=== PATIENT | male | born 1945 | race Caucasian/White ===

== ENCOUNTER 2023-03-23 10:41 | Day surgery (SDC) | payer MEDICARE, SELFPAY ==
[2023-03-16 12:26] LABS: Hemoglobin 14.6 g/dL (13.0-16.5); Mean Corp Hgb Conc 33.2 g/dL (32-36); Mean Corpuscular Hgb 32.3 pg (27.0-32.0); Mean Corpuscular Volume 97.3 fL (80-94); Mean Platelet Vol. 9.4 fl (6.2-12.0); Platelet Count 279 K/mm3 (150-450); RBC Distribution Width CV 13.2 % (11.6-14.6); RBC Distribution Width SD 47.1 fl (35.1-43.9); Red Blood Count 4.52 M/mm3 (4.6-6.2); White Blood Count 8.1 K/mm3 (4.4-11.0)
[2023-03-16 13:07] LABS: Anion Gap 5 (5-15); BUN 23 mg/dL (7-18); BUN/Creat Ratio 20.7 RATIO (10-20); Calcium,Total 8.9 mg/dL (8.5-10.1); Chloride 107 mmol/L (98-107); Creatinine, Serum 1.11 mg/dL (0.70-1.30); EST Glomerular Filtration Rate 68 mL/min (>60); Est Glom Filt Rate - Afr Amer 82 mL/min (>60); Glucose 107 mg/dL (74-106); Potassium 4.7 mmol/L (3.5-5.1); Sodium Level 138 mmol/L (136-145)
[2023-03-23 11:13] VITALS: BP 163/93; PULSE 90; RESP 16; TEMP 36.2; O2SAT 100; BMI 23.8
[2023-03-23] MEDS: Lactated Ringers 1,000 ML 15 ML IV (11:23)
--- NOTE | 2023-03-23 11:27 | PCM.HP.BLA ---
History and Physical Date of Admission: 03/23/23 Intake Vital Signs 01/20/2314:57 Height 5 ft 7 in Weight: 156 lb 6 oz BMI 24.5 BP 142/85 H Blood Pressure Location Rt brachial Position Sitting Respiration 17 Pulse 84 Pulse Source Monitor Temp 98 F Intake Visit Reasons: SELF REFERRED INGUINAL HERNIA Chief Complaint: INGUINAL HERNIA Allergies No Known Allergies Allergy (Unverified 01/20/23 14:58) Medications apixaban 5 mg tablet (Eliquis) 5 mg PO BID 01/20/23 [History Confirmed 01/20/23] digoxin 125 mcg (0.125 mg) tablet 125 mcg PO DAILY 01/20/23 [History Confirmed 01/20/23] metoprolol succinate 50 mg tablet,extended release 24 hr 50 mg PO DAILY 01/20/23 [History Confirmed 01/20/23] HPI HPI HPI: Patient is a 77-year-old male with right inguinal bulging. The patient reports this has been there for several years but is becoming more problematic and he would like it repaired. He denies nausea or vomiting. He denies any pain on the opposite side. He has never had any abdominal or hernia surgery in the past. He denies fevers or chills. ROS General General: No weight change, appetite, fatigue, colon cancer, breast cancer or weakness HEENT HEENT: No difficulty swallowing, eye injury, eye surgery, swollen glands or hoarseness Endo Endocrine: No thyroid disease, diabetes mellitus, thyroid cancer, Hair loss, heat intolerance or cold intolerance Skin Skin: No rash or changing moles Breast Breast: No left breast lump, right breast lump, nipple discharge, breast pain, abnormal mammogram, abnormal US or breast enlargement Musc Musculoskeletal: Yes back problems and arthritis; No rheumatoid arthritis, gout or joint pain Cardio Cardiovascular: Yes atrial fibrillation; No murmur, pacemaker, heart disease, high blood pressure, heart attack, heart stent, palpitations, shortness of breat with exertion or chest pain Psych Psychiatric: Yes depression and anxiety; No hearing voices Resp Respiratory: No shortness of breath, No sleep apnea, No cough, No COPD, No asthma, No emphysema and No wheezing Gastro Gastrointestinal: Yes abdominal pain, Yes nausea or vomiting, No diarrhea, No constipation, No blood in stool, No acid reflux, No hemorrhoids, No ulcers, No gallbladder problem and No black,tarry stools Jc Hematologic: Yes blood thinners, No blood disorders, No bleeding, No anemia and No blood clots Neuro Neurologic: No system reviewed and no additional complaints, except as documented, No as per HPI, No abnormal gait, No abnormal hearing, No abnormal movements, No abnormal speech, No behavioral changes, No burning sensations, No confusion, No convulsions, No disequilibrium, No dizziness, No localized weakness, No frequent falls, No headache(s), No lack of coordination, No loss of vision, No memory loss, Yes numbness, No other visual disturbances, No radicular pain, No restless legs, No sensory deficit, No syncope, Yes tingling, No tremor(s), No weakness and No other Exam Const General: cooperative Orientation: alert and oriented x3 HENMT Head: normal to inspection Neck Neck: normal visual inspection and full ROM Chest Chest palpation & inspection: normal inspection of the chest Resp Effort & Inspection: normal respiratory effort Auscultation: clear to auscultation bilaterally Cardio Rate: regular rate Rhythm: regular rhythm GI Inspection: non-distended Palpation: soft, hernia indirect inguinal on the right and nontender Skin General: no rashes or lesions noted Neuro General: patient alert and patient oriented x3 Extrem General: full ROM Psych Appearance: grossly normal Mental Status: mental status grossly normal Assessment and Plan Assessment and Plan (1) Inguinal hernia: Status: Acute Qualifiers: Obstruction and gangrene presence: without obstruction or gangrene Laterality: unilateral Recurrence: not specified as recurrent Qualified Code(s): K40.90 - Unilateral inguinal hernia, without obstruction or gangrene, not specified as recurrent Plan: The patient has a reducible right inguinal hernia. I do not feel hernia on the left. I discussed robotic assisted laparoscopic right inguinal hernia repair with mesh. I discussed repairing the contralateral side if the hernia is present he would like it repaired if there is one there. I discussed robotic approach as well as possibility of open approach. I discussed the risks including but not limited to bleeding, infection, injury other organs such as the bowel, bladder, ureter, blood supply to the testicle. Patient understands all the risks and is willing to proceed. The patient says he has a bad tooth that needs to be pulled and I will delay his surgery until after that has been removed. I will also ask him to hold his Eliquis for 3 days prior to surgery. Ronaldo Zapata MD Pager: [facility] [address] [place] [address], [address] [place] [address] Office: I have examined the patient and the H&P has been reviewed. There are no clinical changes since date of exam.
[2023-03-23] MEDS: Cefazolin 2 GM in 0.9% Normal Saline (100mL Bag) 100 ML IV (12:06)
[2023-03-23] MEDS: Bupivacaine Mpf 0.5% 30 ML VIAL (12:13)
--- NOTE | 2023-03-23 12:42 | OP.PCM_ITS ---
Report of Operation Date of Procedure: 03/23/23 Pre-Operative Diagnosis: Right inguinal hernia Post-Operative Diagnosis: Right inguinal hernia Surgery/Procedure Performed:: Robotic assisted laparoscopic right inguinal hernia repair with mesh Type of Anesthesia: General/Regional Estimated Blood Loss (mL): 10 Description of Procedure: Patient was brought operating and general anesthesia was induced. The abdomen was prepped and draped in usual sterile fashion. Midline incision was made superior to the umbilicus and deepened to the fascia. The fascia was elevated and a Veress needle was placed into the abdomen and a drop test was performed. The abdomen is then insufflated 15 mmHg and the Veress needle was removed. A port was placed into the abdomen and the camera was placed into the abdomen. The camera was used to inspect the abdomen there were no injuries from entry. Patient was placed in Trendelenburg position and the patient had a large indirect right inguinal hernia and no inguinal hernia on the left. Under direct visualization an 8 mm port was placed in the right lateral abdominal sidewall and the left lateral abdominal sidewall. The robot was then docked. Using el ectrocautery scissors an incision was made in the right lower quadrant peritoneum and dissection was carried inferiorly until the hernia sac was identified. The hernia sac was dissected free from its adhesions and reduced. Dissection was carried inferior until there was enough room to see the entire hernia and then a ProGrip mesh was placed into the right lower quadrant and unfolded and completely covered the hernia. Next the peritoneum was reapproximated using a running 3 OV lock suture to completely cover the mesh. There appeared to be good hemostasis with good coverage of the hernia and good coverage of the mesh. Next the robot was undocked and the abdomen was allowed to desufflate. The ports were removed and the incisions were injected local anesthetic and closed with interrupted 4-0 Monocryl sutures. Steri-Strips and bandages were applied. Scrotum was checked at the end the case and contain both testicles. Patient was awoken and taken to PACU in stable condition and linn ated the procedure well. Grafts/Implants Used: ProGrip mesh in the right groin Admit VTE Documentation VTE Mechan Device Prophylaxis: SCD's
--- NOTE | 2023-03-23 12:45 | DCINST_ITS ---
Discharge Instructions Diet Discharge Diet: Light diet - advance as tolerated Activity Discharge Activity: May Not Drive (for 2-3 days or while taking narcotic pain meds.) and May Shower (with the bandage in place 1-2 days after surgery.) Lifting Restrictions: 20 pounds for 4 weeks Additional Activity Instructions:: Climbing stairs is fine, walking is encouraged. Sitting in bed may be uncomfortable. Sitting up using your lateral muscles (sitting up sideways) is usually more comfortable. Do not drive, work heavy equipment or sign legal documents for 24 hours. If your hernia repair was an inguinal repair, you may have scrotal swelling, an ice pack and/or athletic support can provide more comfort. Pain medications may cause nausea, you should typically eat light foods as you take your pain medications. Pain medications may also cause constipation. If you have difficulty with this, discuss with your doctor. Dressing / Incision Call your doctor if your incision/area has: Continuous Slow Oozing, Sudden Increased Bleeding, Increased Pain/ Swelling, Increased Redness and Foul Smelling Discharge Call your doctor if you observe: Fever of 101 or Higher Suture Line Care: Avoid Pulling/Pushing and Avoid Pinching/Bending Remove Dressing in: 2 days (Remove clear bandages in 2 days, remove Steri-Strips in 7 to 10 days.) Cleanse incision/area with: Soap & Water Follow Up Care Please Follow Up With: Ronaldo Zapata MD When: Please call to schedule 2 week follow up appointment. [phone] Test Results: Test results from this visit will be discussed in further detail at your follow- up appointment, if applicable. Discharge Plan Admission Attending Provider: Ronaldo Zapata Primary Care Provider: Care Physician,No Primary Instructions Additional Instructions / Restrictions: Ibuprofen and Tylenol for pain, oxycodone for breakthrough. Patient may resume Eliquis on Thursday Discharge Orders/Prescriptions Prescriptions: New oxycodone 5 mg tablet 5 - 10 mg PO Q6H PRN (Reason: pain) 5 Days Qty: 10 0RF No Action Eliquis 5 mg tablet 5 mg PO BID digoxin 125 mcg (0.125 mg) tablet 125 mcg PO DAILY metoprolol succinate 50 mg tablet extended release 24 hr 50 mg PO DAILY nifedipine 30 mg tablet extended release 24hr 30 mg PO QHS Disposition Disposition (needs filled in before D/C Order can be placed): Home, Self Care
[2023-03-23 13:01] VITALS: BP 147/74; BP 163/93; PULSE 67; RESP 16; TEMP 36.1; O2SAT 95
[2023-03-23 13:15] VITALS: BP 151/60; BP 163/93; PULSE 57; RESP 16; O2SAT 97
[2023-03-23 13:30] VITALS: BP 147/73; BP 163/93; PULSE 54; RESP 16; O2SAT 98
[2023-03-23 13:44] VITALS: BP 153/68; BP 163/93; PULSE 54; RESP 16; TEMP 36.1; O2SAT 100
[2023-03-23 15:53] VITALS: BP 139/84; BP 163/93; PULSE 81; RESP 18; TEMP 36.7; O2SAT 95
== END 2023-03-23 16:25 | disposition home or self-care (01) ==
LOC: SDC 10:42 → AC 10:43
PROVIDERS: Anesthesiology; Referring Provider Surgery; Visit Provider Surgery
PROC: (CPT 49650; principal; 2023-03-23 11:55)
DX: K40.90 Unilateral inguinal hernia, without obstruction or gangrene, not specified as recurrent (principal); Z86.79 Personal history of other diseases of the circulatory system; I10 Essential (primary) hypertension
CPT/HCPCS: 49650; 00840; 36415; 80048; 85027; 93005; J7120; J2405